=== PATIENT | female | born 1990 | race Caucasian/White ===

== ENCOUNTER 2022-03-12 11:59 | Emergency (ER) | payer MEDICAID, OTHER ==
[~2022-03-12] VITALS: Ht 162.6 cm; Wt 88.5 kg
[2022-03-12 12:52] VITALS: BP 115/83
[2022-03-12] MEDS ORDERED: EPINEPHrine HCL 1 MG/1 ML AMP SC ONE (13:30)
[2022-03-12] MEDS ORDERED: methylPREDNISolone SOD SUCC 125 MG/2 ML VL IM ONE (13:30)
[2022-03-12] MEDS ORDERED: diphenhdrAMINE HCL 50 MG/1 ML VL IM ONE (14:00)
[2022-03-12] MEDS ORDERED: PRED20TA2 PO (14:04)
[2022-03-12] MEDS ORDERED: HYDR50CA PO (14:04)
== END 2022-03-12 14:16 | disposition home or self-care (01) ==
LOC: ER 12:09
DX: T78.40XA Allergy, unspecified, initial encounter (principal); Z79.899 Other long term (current) drug therapy; Z88.8 Allergy status to other drugs, medicaments and biological substances; Y92.89 Other specified places as the place of occurrence of the external cause
CPT/HCPCS: 96372; 99284; J0171; J1200; J2930